=== PATIENT | female | born 1980 | race Caucasian/White ===

== ENCOUNTER 2016-04-14 08:22 | Emergency (ER) | payer BC ==
[~2016-04-14] VITALS: Ht 167.6 cm; Wt 131.5 kg
[2016-04-14 08:45] VITALS: BP 146/75
[2016-04-14] MEDS ORDERED: HYDROCODONE/APAP 5/325MG TABLET. PO ONE (08:45)
[2016-04-14] MEDS ORDERED: DIPHTH,PERTUSS(ACELL),TET TOX 0.5 ML DISP.SYRIN. VAX IM ONE (08:45)
[2016-04-14] MEDS ORDERED: BUPIVACAINE 0.5% 50 ML VIAL. INJ ONE (08:45)
--- NOTE | 2016-04-14 08:54 | PHYS DOC ---
Adult General Chief Complaint Chief Complaint: VAGINAL PROBLEM HPI HPI Patient is a 35 year old female who presents with the right labia swelling that began a week ago. Patient states her periods are irregular and sometimes she gets labia irritation from using different feminine products including tampons which she used last week during her period and later realized she has swelling to the right labia. Patient denies any drainage from the labia. Denies any fever. Denies any urgency frequency or dysuria, denies any chance she is . Review of Systems Review of Systems Constitutional: Denies fever or chills [] Eyes: Denies change in visual acuity, redness, or eye pain [] HENT: Denies nasal congestion or sore throat [] Respiratory: Denies cough or shortness of breath [] Cardiovascular: No additional information not addressed in HPI [] GI: Denies abdominal pain, nausea, vomiting, bloody stools or diarrhea [] Female : Right labial swelling : Denies dysuria or hematuria [] Musculoskeletal: Denies back pain or joint pain [] Integument: Denies rash or skin lesions [] Neurologic: Denies headache, focal weakness or sensory changes [] Endocrine: Denies polyuria or polydipsia [] Current Medications Current Medications Current Medications Medications (Trade) Dose Ordered Sig/Janee Start Time Stop Time Status Last Admin Dose Admin Acetaminophen/ Hydrocodone Bitart (Lortab 5/325) 2 tab 1X ONCE 04/14/16 08:45 04/14/16 08:50 DC 04/14/16 09:07 1 TAB Bupivacaine HCl (Marcaine 0.5%) 50 ml 1X ONCE 04/14/16 08:45 04/14/16 08:50 DC 04/14/16 09:08 50 ML Diphtheria/ Tetanus/Acell Pertussis (Boostrix) 0.5 ml ONCE ONCE 04/14/16 08:45 04/14/16 08:50 DC 04/14/16 09:07 0.5 ML Allergies Allergies Allergies Coded Allergies Type Severity Reaction Last Updated Verified carbinoxamine Allergy Intermediate 04/14/16 Yes pseudoephedrine Allergy Intermediate 04/14/16 Yes theophylline Allergy Intermediate 04/14/16 Yes Physical Exam Physical Exam Constitutional: Well developed, well nourished, no acute distress, non-toxic appearance. [] HENT: Normocephalic, atraumatic, bilateral external ears normal, oropharynx moist, no oral exudates, nose normal. [] Eyes: PERRLA, EOMI, conjunctiva normal, no discharge. [] Neck: Normal range of motion, no tenderness, supple, no stridor. [] Cardiovascular:Heart rate regular rhythm, no murmur [] Lungs & Thorax: Bilateral breath sounds clear to auscultation [] Abdomen: Bowel sounds normal, soft, no tenderness, no masses, no pulsatile masses. [] Right inner labia with an area of induration approx. 3X2 cm with erythema, no warmth, TTP and fluctuant. This looks like a Bartholin cyst. Skin: Warm, dry, no erythema, no rash. [] Back: No tenderness, no CVA tenderness. [] Extremities: No tenderness, no cyanosis, no clubbing, ROM intact, no edema. [] Neurologic: Alert and oriented X 3, normal motor function, normal sensory function, no focal deficits noted. [] Psychologic: Affect normal, judgement normal, mood normal. [] Current Patient Data Vital Signs Vital Signs Date Time Temp Pulse Resp B/P Pulse Ox O2 Delivery O2 Flow Rate FiO2 04/14/16 09:07 18 96 Room Air 04/14/16 08:45 99.0 95 99.0 EKG EKG [] Radiology/Procedures Radiology/Procedures Indication: Right labial Bartholin cyst. Procedure: The patient was positioned appropriately. Local anesthesia was 0.5% of bupivacaine. An incision was then made over the apex of the lesion and mild amount of yellow bloody material was expressed. The drainage cavity was irrigated and Bartholin cyst catheter was placed in the opening. The patients tetanus status updated as needed. The patient tolerated the procedure well. Complications: none.[] Course & Med Decision Making Course & Med Decision Making Pertinent Labs and Imaging studies reviewed. (See chart for details) Patient is in the ED with the right labia swelling that began a week ago. The swelling is consistent with a Bartholin's cyst, it was drained and Bartholin catheter inserted. She is to come to the ED in 2 days for wound check. Provided wound care instructions. Tetanus was updated. Dragon Disclaimer Dragon Disclaimer This electronic medical record was generated, in whole or in part, using a voice recognition dictation system. Departure Departure Impression: Primary Impression: Bartholin's cyst Disposition: HOME, SELF-CARE Condition: STABLE Patient Instructions: Bartholin's Cyst or Abscess Additional Instructions: You were seen for a Bartholin cyst of the right labia, it was drained in the emergency room. Keep the area clean and dry. You can shower it, come back to the emergency room in 2 days for wound check. Scripts Hydrocodone/Apap 5-325 ([place] 5-325 Tablet)1 Each Tablet1-2 Tab PO Q4-6HRS #10 TAB Prov:ROHINI FONG APRN 04/14/16 ROHINI FONG APRN Apr 14, 2016 08:54
[2016-04-14] MEDS ORDERED: HYDR-971 PO (10:21)
== END 2016-04-14 10:31 | disposition home or self-care (01) ==
LOC: ER 08:22
DX: N75.0 Cyst of Bartholin's gland (principal); Z88.1 Allergy status to other antibiotic agents; Z88.8 Allergy status to other drugs, medicaments and biological substances
CPT/HCPCS: 56420; 90471; 90715; 99284; J3490

== ENCOUNTER 2016-04-16 17:34 | Emergency (ER) | payer BC ==
[~2016-04-16] VITALS: Ht 167.6 cm; Wt 131.5 kg
[~2016-04-16 17:34] MED LIST: HYDR-971 PO
[2016-04-16 18:11] VITALS: BP 175/93
[2016-04-16] MEDS ORDERED: HYDR-971 PO (18:52)
--- NOTE | 2016-04-16 18:52 | PHYS DOC ---
Past Medical History Past Medical History: Asthma Past Surgical History: No Surgical History Alcohol Use: Occasionally Drug Use: Marijuana Adult General Chief Complaint Chief Complaint: WOUND CHECK HPI HPI Patient is a 35 year old female with history of asthma who presents today for wound check for a Bartholin's cyst that I drained 2 days ago and placed a Bartholin catheter in it. Patient denies any problems with the wound. Review of Systems Review of Systems Constitutional: Denies fever or chills [] Integument: Visit for wound check Neurologic: Denies headache, focal weakness or sensory changes [] Endocrine: Denies polyuria or polydipsia [] Allergies Allergies Allergies Coded Allergies Type Severity Reaction Last Updated Verified carbinoxamine Allergy Intermediate 04/14/16 Yes pseudoephedrine Allergy Intermediate 04/14/16 Yes theophylline Allergy Intermediate 04/14/16 Yes Physical Exam Physical Exam Constitutional: Well developed, well nourished, no acute distress, non-toxic appearance. [] Skin: Right labia with a Bartholin catheter. There is no induration on the right labia. There is trace erythema to the area. There is minimal drainage brown reddish in color coming from the wound. Back: No tenderness, no CVA tenderness. [] Extremities: No tenderness, no cyanosis, no clubbing, ROM intact, no edema. [] Neurologic: Alert and oriented X 3, normal motor function, normal sensory function, no focal deficits noted. [] Psychologic: Affect normal, judgement normal, mood normal. [] Current Patient Data Vital Signs Vital Signs Date Time Temp Pulse Resp B/P Pulse Ox O2 Delivery O2 Flow Rate FiO2 04/16/16 18:11 98.3 101 18 97 Room Air 98.3 EKG EKG [] Radiology/Procedures Radiology/Procedures [] Course & Med Decision Making Course & Med Decision Making Pertinent Labs and Imaging studies reviewed. (See chart for details) Patient is in the ED for wound check for Bartholin cyst that i drained in right labia 2 days ago and put a Bartholin catheter. I removed the Bartholin catheter and cleaned the area. Patient was discharged with instructions to keep the area clean and dry. Provided an [employer] for follow-up in one week. Provided return precautions and discharged in stable condition. Dragon Disclaimer Dragon Disclaimer This electronic medical record was generated, in whole or in part, using a voice recognition dictation system. Departure Departure Impression: Primary Impression: Bartholin's cyst Additional Impression: Wound of cheek Disposition: 01 HOME, SELF-CARE Condition: STABLE Referrals: NO PCP (PCP) follow up with your OBGYN in one week Patient Instructions: Bartholin's Cyst or Abscess Additional Instructions: Please keep the area clean and dry. Come back to the ER with any concern. Follow up with your OBGYN in one week. Scripts Hydrocodone/Apap 5-325 ([place] 5-325 Tablet)1 Each Tablet1-2 Tab PO Q4-6HRS #20 TAB Prov:ROHINI FONG APRN 04/16/16 Problem Qualifiers Additional Impression: Wound of cheek Encounter type: subsequent encounter Laterality: right Qualified Code: S01.401D - Unspecified open wound of right cheek and temporomandibular area, subsequent encounter ROHINI FONG [employer]CHIT[employer] Apr 16, 2016 18:52
== END 2016-04-16 18:58 | disposition home or self-care (01) ==
LOC: ER 17:34
DX: S01.401D Unspecified open wound of right cheek and temporomandibular area, subsequent encounter (principal); N75.0 Cyst of Bartholin's gland; J45.909 Unspecified asthma, uncomplicated; F12.10 Cannabis abuse, uncomplicated; Z88.8 Allergy status to other drugs, medicaments and biological substances; X58.XXXD Exposure to other specified factors, subsequent encounter
CPT/HCPCS: 99284